=== PATIENT | female | born 1985 | race Caucasian/White ===

== ENCOUNTER 2020-09-17 12:31 | Outpatient (REF) | payer OTHER, SELFPAY | END 2020-09-17 12:32 | disposition home or self-care (01) | LOC: HO.LAB 12:31 | PROVIDERS: Visit Provider Internal Medicine | DX: Z20.822 Contact with and (suspected) exposure to COVID-19 (principal) | CPT/HCPCS: C9803; U0003; U0005 ==

== ENCOUNTER 2024-11-27 09:54 | Emergency (ER) | payer OTHER, SELFPAY ==
--- NOTE | 2024-11-27 10:13 | ED_ITS ---
HPI - General Adult General Chief complaint: Extremity Problem Stated complaint: arthritis flare up Time Seen by Provider: 11/27/24 15:42 Source: patient Mode of arrival: ambulatory Limitations: no limitations History of Present Illness ED Provider: Dr. Artemio Andrews HPI narrative: 39-year-old female with a history of IBS, anxiety, depression, insomnia who presents emergency department for evaluation of migratory joint pain and swelling. Patient states that on Monday11/15/2024 (12 days prior ) she developed pain and swelling over the PIP joint of her left middle finger and right index finger. On 11/16/2024, she developed bilateral hip pain. She then developed left toe and left ankle pain with swelling. She then developed bilateral jaw pain. The patient states that 1 week before she had her joint symptoms, she had a white, vaginal discharge which was pruritic. She was diagnosed with a yeast infected and took 1 dose of fluconazole and states that her symptoms resolved. Patient is and she states that she is sexually active. She states she last had intercourse 2-3 weeks prior to the onset of her vaginal discharge. The patient has not noted any tick bites or rash. She denied fever, chills, rhinorrhea, sore throat, cough, diarrhea. Patient was seen at an urgent care clinic 1 week prior and was started on prednisone 40 mg x 3 days with a tapering dose of decreasing 1 pill every 3 days. The patient has not yet completed this course of prednisone but she does not think that the medicine has helped with her symptoms. Related Data Previous Rx's ?Medication ?Instructions ?Recorded doxycycline hyclate 100 mg tablet 100 mg PO Q12H 10 da ys #20 tabs 11/27/24 prednisone 10 mg tablet 10 mg PO DIRECTED #60 tab s 11/27/24 Allergies Allergy/AdvReac Type Severity Reaction Status Date / Time Penicillins Allergy Anaphylaxis Verified 11/27/24 10:16 Review of Systems 2 Review of Systems: Yes all other systems are reviewed and are negative [facility] Social History Social History Advance Directives: No Advance Directives Information Provided: Yes Do you have a plan to hurt others: No Plan Physical Exam ED Vital Signs: Vital Signs - 24 hr 11/27/24 10:14 Temperature 97.8 F Pulse Rate 76 Respiratory Rate 18 Blood Pressure 118/57 L Pulse Oximetry 97 Oxygen Delivery Method Room Air BMI result Body Mass Index 26.4 Vital signs were normal Exam: General: Awake, alert in no distress Head: Normocephalic, atraumatic EENT: PERRL, sclera and conjunctiva are normal, mouth with no erythema or exudates, patient does have pain with opening and closing her jaw and tenderness with palpation over her TMJ joints with no increased warmth or erythema Neck: Supple, no adenopathy Lung: breath sounds symmetric, no wheezing, no rales and no rhonchi Chest: symmetric movement, nontender Heart: regular rate and rhythm, normal S1, S2 no murmurs or rubs Abdomen: soft, non-tender, nondistended, normal bowel sounds Back: no vertebral tenderness, no CVAT Extremities: Patient has erythema, increased warmth and swelling of the PIP joint of her left middle finger and right index finger. Patient has no swelling or erythema to her left toes but these toes are painful with active and passive range of motion. Patient does have a right lateral malleolus joint effusion with tenderness palpation of the joint and pain with movement of her ankle. Patient also has pain with movement of her hip joints bilaterally. Neuro: Awake, alert, oriented, normal speech, cranial nerves 2-12 intact, moves all extremities symmetrically Psych: Pleasant, cooperative Course Course Course Narrative: This is a Rapid Medical Examination (RME) performed by Geovanni Gerardo PA-C in triage. Full HPI, ROS, assessment and treatment plan per primary provider in the Main ED. Hx: 39 yo F hx IBS, anxiety, depression here for joint pain (hands, feet, right hip and right jaw) x1.5 weeks. no rash, fever, chills. no tick/ insect bites. seen at 6 days ago - prescribed prednisone without improvement. they mentioned she may be having a flare of RA however has never received a diagnosis of RA. Plan: labs Medications Administered Discontinued Medications Generic Name Dose Route Start Last Admin Trade Name Freq PRN Reason Stop Dose Admin Ceftriaxone Sodium 500 mg/ 0 mg 11/27/24 16:34 11/27/24 17:04 Lidocaine HCl 1 ml IM 11/27/24 16:35 500 kit ONCE ONE Administration Medical Decision Making Medical Decision Making [facility] Narrative: 39-year-old female with a history of IBS, anxiety, depression, insomnia who presents emergency department for evaluation of migratory joint pain and swelling times 12 days. The joints involved include her PIP joints of her left middle finger, right index finger, right ankle malleolus, right toes, bilateral hips and bilateral TMJ. The patient is on a tapering course of prednisone with no improvement in her symptoms. Patient had no known tick exposure, rash or febrile illness. She has had no change in her medications. Differential diagnosis: ?Includes but is not limited to rheumatoid arthritis, lupus, reactive arthritis (chlamydia, gonorrhea) Lyme disease, anaplasmosis, gout Course: My independent interpretation patient's laboratory evaluation is as follows: ESR was normal 12. CRP elevated 0.83.-the patient is taking prednisone which could have affected these tests. WBC elevated 13,600. H&H was normal 10 and 39. Platelet count normal 265,000. Comprehensive metabolic panel was normal. Beta- hCG was below detectable limits. MARGI and RF are pending. GC, chlamydia urine test pending. Tick-borne illness panel pending. At this time, I do not have a clear cause for her migratory inflammatory arthritis. The patient did have a prodromal vaginal discharge therefore I treated her for possible gonorrhea with ceftriaxone 500 mg IM. Patient's tick- borne illness panel was pending. Patient was treated for possible chlamydia and Lyme disease with doxycycline 100 mg q.12 hours for 14 days. I told her that if her Lyme test came back positive, she should take a total of 21 days of doxycycline otherwise I want her to complete the 14 day course. Patient was given a higher pulse dose of prednisone 60 mg once a day, with taper by decrease dose by 10 mg every 2 days until she completes the tapering course. She was advised to take Tylenol for her pain. Patient will need to follow up with her PCP and may need a referral to a air commodore for further evaluation. I did refer her to our rheumatology providers for possible follow-up. She was given printed and verbal instructions and discharged home. She was also given access to the patient portal to check her pending results. I did discuss the possibility of gonorrhea and chlamydia with both the patient and the patient's . Differential Diagnosis Differential Diagnoses: The differential diagnosis associated with the presentation includes (See above) Admission/Observation Consideration of admission/observation: Escalation of care including admission/observation considered (Yes) Lab Data MDM Lab Attestation statement: I reviewed the patient's lab results. 11/27/24 10:41 11/27/24 10:41 Labs: Lab Results 11/27/24 11/27/24 Range/Units 10:41 17:19 WBC 13.6 H (4.8-10.8) X10*3/uL RBC 4.16 L (4.20-5.50) X10*6/uL Hgb 13.0 (12.0-16.0) g/dl Hct 39.0 (37.0-47.0) % MCV 93.8 (80.0-98.0) fL MCH 31.3 (27.0-33.0) pg MCHC 33.3 (31.0-35.0) g/dl RDW 12.4 (11.0-16.0) % Plt Count 265 (160-400) X10*3/uL MPV 10.6 (9.4-12.3) fL Immature Gran % (Auto) 0.5 H (0.0-0.4) % Neut % (Auto) 70.5 (45-73) % Lymph % (Auto) 19.4 L (20-40) % Meigs % (Auto) 9.1 (2-11) % Eos % (Auto) 0.3 (0-4) % Baso % (Auto) 0.2 (0-2) % Lymph # (Auto) 2.6 (1.2-4.9) X10*3/uL Meigs # (Auto) 1.2 (0.1-1.2) X10*3/uL Eos # (Auto) 0.0 (0.0-0.4) X10*3/uL Baso # (Auto) 0.0 (0.0-0.2) X10*3/uL Abs Immat Gran (auto) 0.07 H (0.00-0.03) X10*3/uL Absolute Neuts (auto) 9.6 H (2.0-8.3) x10*3/uL Absolute Nucleated RBC 0.000 (0.0-0.012) X10*3/uL Nucleated RBC % (auto) 0.0 (0.0-0.2) /100WBC ESR 12 (0-20) MM/HR Sodium 142 (135-145) mmol/L Potassium 3.5 (3.3-5.1) mmol/L Chloride 108 (96-108) mmol/L Carbon Dioxide 28 (22-29) mmol/L Anion Gap 10 L (12-20) BUN 13 (9-16) mg/dL Creatinine 0.88 (0.5-1.4) mg/dL Estim Creat Clear Calc 74.7 Estimated GFR > 60 Random Glucose 94 (60-115) mg/dL Calcium 9.3 (8.4-10.2) mg/dL Magnesium 2.1 (1.6-2.6) mg/dL Total Bilirubin 0.4 (0.0-1.0) mg/dL AST 26 (5-31) U/L ALT 21 (0-31) U/L Alkaline Phosphatase 51 (39-117) U/L C-Reactive Protein 0.83 H (< or = 0.50) mg/dL Total Protein 6.5 (6.5-8.0) g/dL Albumin 3.9 (3.5-5.0) g/dL Beta HCG, Quant < 2 mIU/mL Rheumatoid Factor < 13.0 (<15.0) IU/mL Independent Historian Clinical information obtained from an independent historian. History obtained from or confirmed by: Spouse Discharge Plan Discharge Clinical Impression: Migratory polyarthritis Patient Disposition: Home, Self-Care Additional Instructions: Your symptoms are consistent with an migratory inflammatory arthritis which is often a reaction to an infectious (Lyme disease, gonorrhea, chlamydia, others), caused by an autoimmune disease (rheumatoid arthritis, systemic lupus erythematosus, other) were other causes. You received ceftriaxone/lidocaine 500 mg IM empirically to treat you for possible gonorrhea Take doxycycline 100 mg pills, 1 pill every 12 hours for 14 days. This will treat Lyme disease and chlamydia. If your Lyme test is positive I want you to take the doxycycline for a total of 21 days. If the Lyme test is negative make sure you complete a 14 day course of doxycycline. Sometimes the Lyme tests can be negative (false negative) and you still have Lyme disease. Stop taking the course of prednisone prescribed by the urgent care clinic. Take prednisone 10 mg pills 6 pills once a day for 5 days then decrease by 1 pill every 2 days until you complete the course of prednisone. This is a higher dose of prednisone then was prescribed by the urgent care clinic. Take extra-strength Tylenol 500 mg pills, 2 pills every 6 hours as needed for pain. Follow-up with your doctor in 7 days for re-evaluation. Your doctor may want to refer you to a air commodore if you are not better or if your symptoms recur after treatment. Please return to the emergency department if your symptoms get worse or if you develop any symptoms that are concerning to you. You can try to follow up with our rheumatologists, Dr. Andre Posadas or Dr. Kirill Mendoza There were several tests that will not come back today these include autoimmune tests: MARGI and RF Tick-borne illness panel which includes Lyme disease, anaplasmosis, and babesiosis testing. Prescriptions: New doxycycline hyclate 100 mg tablet 100 mg PO Q12H 10 Days Qty: 20 0RF prednisone 10 mg tablet 10 mg PO DIRECTED Qty: 60 0RF Rx Instructions: Day 1 through 5 take 6 pills then decrease by 1 pill every 2 days until you complete prescription Referrals: Marge Posadas MD [Physician, Rheumatology] Referral Note: Presented to the ED with migratory arthritis x1 week Clinical Impression: Migratory polyarthritis Stand Alone Forms: Work/School Release Discharge Date/Time: 11/27/24 17:28 Print Language: Hebrew
[2024-11-27 10:14] VITALS: BP 118/57; PULSE 76; RESP 18; TEMP 36.6; O2SAT 97; BMI 26.4
[2024-11-27 10:47] LABS: MANUAL DIFF FLAG NO
[2024-11-27 10:50] LABS: Hematocrit 39.0 % (37.0-47.0); Hemoglobin 13.0 g/dl (12.0-16.0); Imm Gran Abs Auto 0.07 X10*3/uL (0.00-0.03); Imm Gran Pct Auto 0.5 % (0.0-0.4); Lymphocytes Absolute Auto 2.6 X10*3/uL (1.2-4.9); Mean Corpuscular HGB Conc 33.3 g/dl (31.0-35.0); Mean Corpuscular Hemoglobin 31.3 pg (27.0-33.0); Mean Corpuscular Volume 93.8 fL (80.0-98.0); NRBC Abs Auto 0.000 X10*3/uL (0.0-0.012); NRBC Pct Auto 0.0 /100WBC (0.0-0.2); Platelet Count 265 X10*3/uL (160-400); Red Blood Count 4.16 X10*6/uL (4.20-5.50); White Blood Count 13.6 X10*3/uL (4.8-10.8)
[2024-11-27 11:13] LABS: Alanine Aminotransferase 21 U/L (0-31); Albumin Level 3.9 g/dL (3.5-5.0); Alkaline Phosphatase 51 U/L (39-117); Anion Gap 10 (12-20); Aspartate Amino Transferase 26 U/L (5-31); Blood Urea Nitrogen 13 mg/dL (9-16); Calcium 9.3 mg/dL (8.4-10.2); Carbon Dioxide 28 mmol/L (22-29); Chloride 108 mmol/L (96-108); Creatinine Clr Calc Pharmacy 74.7; Estimated Glomerular Filt Rate > 60; Magnesium 2.1 mg/dL (1.6-2.6); Potassium 3.5 mmol/L (3.3-5.1); Sodium 142 mmol/L (135-145); Total Protein 6.5 g/dL (6.5-8.0)
[2024-11-27] MEDS: cefTRIAXone sodium 500 MG, Lidocaine HCl 1 % MPF 1 ML IM (17:04)
--- OUTSIDE RECORDS SUMMARY | 2024-11-27 18:46 | XMS_ITS | Clinical Summary ---
Author Organization [facility] Address [address] [place], [place] [id number] Care Team Providers Care Manager Monitoring Name Role Phone Daria Isabel DO Primary Care P rovider Allergies Active Allergy Reactions Criticality Noted Date Comments Penicillins 03/30/2017 Rash/itchy Medications Medication Sig Dispensed Refills Start Date End Date Status sertraline (ZOLOFT) 50 MG tablet 0 10/31/2021 Active traZODone (DESYREL) 100 MG tablet 0 10/31/2021 Active Active Problems Problem Noted Date Diagnosed Date Insomnia 02/03/2020 Anxiety 12/09/2019 Moderate episode of recurrent major depressive d isorder 12/09/2019 Seasonal allergies 03/30/2017 GERD (gastroesophageal reflux disease) 7 Immunizations Name Administration Dates Next Due Hepatitis B (Adult 3 dose)/(Adolescent 2 dose) E ngerix 01/23/2014,11/27/2013 MMR 01/23/2014,11/27/2013 Tdap 03/29/2016,11/27/2013 Family History Medical History Relation Name Comments Heart attack Brother Hyperlipidemia Brother Hypertension Brother Hypertension Father Rheumatologic disease Father Heart attack Mother Hyperlipidemia Mother Hypertension Mother Relation Name Status Comments Brother Father Mother Social History Tobacco Use Types Packs/Day Years Used Date Smoking Tobacco: Never Smokeless Tobacco: Never Alcohol Use Standard Drinks/Week Comments No 0 (1 standard drink = 0.6 oz pur e alcohol) Sex and Gender Information Value Date Recorded Sex Assigned at Not on file Gender Identity Not on file Sexual Orientation Not on file Job Start Date Occupation Industry Not on file Not on file Not on file Last Filed Vital Signs Vital Sign Reading Time Taken Comments Blood Pressure 106/73 11/03/2021 2:11 PM EDT Pulse 75 11/03/2021 2:11 PM EDT Temperature 36.9 C (98.4 F) 11/03/2021 2:11 PM EDT Respiratory Rate - - Oxygen Saturation 95% 11/03/2021 2:11 PM EDT Inhaled Oxygen Concentration - - Weight 63.2 kg (139 lb 6.4 oz) 11/03/2021 2:11 P M EDT Height 154.9 cm (5' 1 ) 11/03/2021 2:11 PM EDT Body Mass Index 26.34 11/03/2021 2:11 PM EDT Plan of Treatment Health Maintenance Due Date Last Done Comments Hepatitis C Screening 1987 COVID-19 Vaccine (#1) 04/27/1988 Depression Screening 1999 BMI Counseling 10/28/2005 Preventative Health Evaluation 10/28/2005 Cervical Cancer Screening (Pap Smear) 10/28/2008 Hepatitis B Vaccines (3 of 3 - 19+ 3-dose series) 05/28/2014 01/23/2014, 11/27/2013 Influenza Vaccine (#1) 2024 DTap / Tdap / Td (3 - Td or Tdap) 03/29/2026 03/29/2016, 11/27/2013 Pneumococcal Vaccine Aged Out No long er eligible based on patient's age to complete this topic RSV Ped < 20 months Aged Out No longe r eligible based on patient's age to complete this topic Care Teams Manager Monitoring Relationship Specialty Start Date End Date Daria Isabel DO PCP - General Animal Science Professor 12/03/18
[2024-11-28 04:42] LABS: CT PCR Urine NOT DETECTED (Not Detect.); NG PCR Urine NOT DETECTED (Not Detect.)
[2024-11-28 06:33] LABS: Lyme Abs Screen <0.90 index
[2024-11-28 22:28] LABS: A. Phagocytphilium DNA,RT-PCR NOT DETECTED (NOT DETECTED); Babesia Microti DNA, RT-PCR NOT DETECTED (NOT DETECTED); Borrelia Miyamotoi,DNA RT-PCR NOT DETECTED (NOT DETECTED); E.Chaffeensis DNA RT-PCR NOT DETECTED (NOT DETECTED); Lyme(Borrelia ssp)DNA RT-PCR NOT DETECTED (NOT DETECTED)
[2024-12-04 14:44] LABS: Anti Nuclear Antibody Screen NEGATIVE (NEGATIVE)
== END 2024-11-27 17:28 | disposition home or self-care (01) ==
PROVIDERS: Physician Assistant Medical; Emergency Provider Emergency Medicine Emergency Medical Services
DX: M13.842 Other specified arthritis, left hand (principal); M25.552 Pain in left hip; M25.551 Pain in right hip; R68.84 Jaw pain; R10.22 Pelvic and perineal pain left side; Z79.899 Other long term (current) drug therapy
CPT/HCPCS: 36415; 80053; 83735; 84702; 85025; 85652; 86038; 86140; 86431; 86617; 86618; 87468; 87469; 87478; 87484; 87491; 87591; 87798; 96372; 99282; 99284; J0696; J2003